=== PATIENT | female | born 1950 | race Two or more races ===

== ENCOUNTER 2018-08-20 20:41 | Emergency (ER) | payer OTHER ==
[~2018-08-20] VITALS: Ht 152.4 cm; Wt 83.9 kg
[~2018-08-20 20:41] MED LIST: AVALIDE 300-12.1 TA1; CRESTOR10 MG; FOLIC ACID1 MG; LANTUS SOLOSTAR3 ML; LEVAQUIN500 MG PO; MEDROL4 MG PO; NOVOLOG100 U/M1; PLAVIX75 MG; PROTONIX40 MG; SINGULAIR 10MG10 MG; SYNTHROID50 MCG; TUSSIONEX PENNKI5 ML PO; VERAPAMIL HCL180 MG; XOPENEX1.25 MG/0. IH; ZANTAC300 MG PO
[2018-08-20] MEDS ORDERED: METOPROLOL SUCC25 MG (21:39)
== END 2018-08-20 22:49 | disposition home or self-care (01) ==
LOC: ER 20:41
DX: M13.862 Other specified arthritis, left knee (principal); M25.562 Pain in left knee

== ENCOUNTER 2022-03-14 06:14 | Inpatient (IN) | payer OTHER ==
[~2022-03-14] VITALS: Ht 152.4 cm; Wt 79.4 kg
[~2022-03-14 06:14] MED LIST changes: +METOPROLOL SUCC25 MG
== END 2022-03-19 22:38 | disposition home or self-care (01) | DRG 177 ==
LOC: ER 06:14 → SEC-K 22:44 → MEDJ 22:44
PROVIDERS: ADMIT Internal Medicine; ATTEND Internal Medicine
PROC: 8E0ZXY6 Isolation (ICD-10-PCS; principal; 2022-03-14)
PROC: 4A12X4Z Monitoring of Cardiac Electrical Activity, External Approach (ICD-10-PCS; 2022-03-14)
PROC: B24BYZZ Ultrasonography of Heart with Aorta using Other Contrast (ICD-10-PCS; 2022-03-16)
DX: U07.1 COVID-19 (principal); I21.A1 Myocardial infarction type 2; J12.82 Pneumonia due to coronavirus disease 2019; N17.9 Acute kidney failure, unspecified; N39.0 Urinary tract infection, site not specified; I24.9 Acute ischemic heart disease, unspecified; J44.1 Chronic obstructive pulmonary disease with (acute) exacerbation; I13.10 Hypertensive heart and chronic kidney disease without heart failure, with stage 1 through stage 4 chronic kidney disease, or unspecified chronic kidney disease; I25.10 Atherosclerotic heart disease of native coronary artery without angina pectoris; E11.22 Type 2 diabetes mellitus with diabetic chronic kidney disease; N18.9 Chronic kidney disease, unspecified; E03.8 Other specified hypothyroidism; Z95.1 Presence of aortocoronary bypass graft